=== PATIENT | male | born 1995 | race African-American/Black ===

== ENCOUNTER 2018-01-21 18:55 | Emergency (ER) | payer SELFPAY ==
[~2018-01-21] VITALS: Ht 188 cm; Wt 81.0 kg
[2018-01-21 20:20] VITALS: BP 125/69
[2018-01-21 20:26] LABS: CLARITY URINE CLEAR (CLEAR); KETONES URINE NEGATIVE (NEGATIVE); LEUKOCYTE ESTERASE URINE 1+ (NEGATIVE); NITRITE URINE NEGATIVE (NEGATIVE); OCCULT BLOOD URINE NEGATIVE (NEGATIVE); PROTEIN URINE NEGATIVE (NEGATIVE); SPECIFIC GRAVITY URINE 1.018 (1.005-1.030)
[2018-01-21 20:32] LABS: COLOR URINE YELLOW (YELLOW)
[2018-01-21] MEDS ORDERED: CEFTRIAXONE SODIUM 250 MG/VIAL IM ONE (21:15)
[2018-01-21] MEDS ORDERED: DOXYCYCLINE HYCLATE 100MG CAPSULE PO ONE (21:15)
== END 2018-01-21 21:57 | disposition home or self-care (01) ==
LOC: ER 18:55
DX: N45.2 Orchitis (principal); N39.0 Urinary tract infection, site not specified; R03.0 Elevated blood-pressure reading, without diagnosis of hypertension; Z20.2 Contact with and (suspected) exposure to infections with a predominantly sexual mode of transmission
CPT/HCPCS: 76870; 81003; 93976; 96372; 99285; J0696; Z7610